=== PATIENT | female | born 1965 | race Caucasian/White ===

== ENCOUNTER 2022-06-02 13:54 | Emergency (ER) | payer MEDICARE, MEDICAID, SELFPAY ==
[2022-06-02 14:25] VITALS: BP 141/90; PULSE 86; RESP 16; TEMP 36; O2SAT 100
--- NOTE | 2022-06-02 15:34 | ED.URI ---
HPI - URI/Sore Throat General Chief Complaint: Upper Respiratory Infection Stated Complaint: Headache/Cough/Fever Time Seen by Provider: 06/02/22 15:51 Source: patient, RN notes reviewed and old records reviewed Mode of arrival: ambulatory Limitations: no limitations History of Present Illness HPI Narrative: 57-year-old female presents to the [facility] with complaints of headache, sinus congestion, feeling feverish since Delma Mai, less than 48 hours. Had tried taking an [id number]-aie-[id number] product which gave her palpitations. Reports mom had a similar issue and got better within 2 weeks. Related Data Home Medications Medication Instructions Recorded Confirmed amitriptyline 50 mg tablet 50 mg PO DAILY 06/02/22 06/02/22 aspirin 81 mg tablet,delayed 81 mg PO DAILY 06/02/22 06/02/22 release baclofen 10 mg tablet 10 mg PO DAILY 06/02/22 06/02/22 asjkxzanbr-oaeexmkpynack-ztdfogee 1 cap PO DAILY 06/02/22 06/02/22 50 mg-300 mg-40 mg capsule clopidogrel 75 mg tablet 75 mg PO DAILY 06/02/22 06/02/22 escitalopram oxalate 10 mg tablet 10 mg PO DAILY 06/02/22 06/02/22 evolocumab 140 mg/mL subcutaneous 140 mg subcut WEEKLY 06/02/22 06/02/22 pen injector (Marian Cronin) folic acid 1 mg tablet 1 mg PO DAILY 06/02/22 06/02/22 losartan 50 mg tablet 50 mg PO DAILY 06/02/22 06/02/22 metoprolol succinate 50 mg 50 mg PO DAILY 06/02/22 06/02/22 tablet,extended release 24 hr omeprazole 40 mg capsule,delayed 40 mg PO DAILY 06/02/22 06/02/22 release Allergies Allergy/AdvReac Type Severity Reaction Status Date / Time erythromycin base Allergy Intermediate Rash Verified 06/02/22 15:58 Review of Systems Review of Systems: All systems reviewed & are unremarkable except as noted in HPI and below Constitutional: Constitutional: Reports no additional constitutional complaints Eyes: Eyes: Reports no additional eye complaints ENT: Reports as per HPI and Reports nasal congestion Comments: Bilateral ear pressure Cardiovascular: Cardiovascular: Reports no additional cardiovascular complaints, Denies chest pain and Denies dyspnea Respiratory: Respiratory: Reports no additional respiratory complaints, Denies chest congestion, Denies cough and Denies dyspnea Gastrointestinal: Gastrointestinal: Reports no additional gastrointestinal complaints, Denies abdominal pain, Denies nausea and Denies vomiting Musculoskeletal: Musculoskeletal: Reports no additional musculoskeletal complaints Integumentary/Breasts: Skin/Breast: Reports system reviewed and no additional complaints, except as docu Neurologic: Reports system reviewed and no additional complaints, except as documented Psychiatric: Psychiatric: Reports no additional psychiatric complaints Allergic/Immunologic: Allergic/Immunologic: Reports no additional allergic/immunologic complaints [facility] Past Medical History Medical History (Updated 06/02/22 @ 20:59 by Rachelle Bernabe APRN) H/O gastroesophageal reflux (GERD) Heart attack High cholesterol History of high blood pressure Comments At the time of my signature, I reviewed and agree with the nursing past medical, surgical, social, and family history. There is no relevant family history pertinent to the patient complaint. Exam Const: General: cooperative, healthy appearing, comfortable, no acute distress, well developed, alert and well nourished Nutritional Appearance: well nourished Orientation/consciousness: patient oriented x3 Limitations: no limitations HENMT: Head: normal to inspection Ears: hearing grossly normal bilaterally, external ears normal and TM abnormal bulging on the left and with fluid behind the TM bilateral; not bullous, not dull and not erythematous Face/Nose/Sinus: Normal external nose present, Normal nares present, Normal nasal mucous membranes and turbinates present and normal facial exam Face and sinus: normal facial exam and sinuses nontender Mouth: Yes Normal oral and palatal mucosa present, Yes
== END 2022-06-02 16:05 | disposition home or self-care (01) ==
PROVIDERS: Emergency Provider Nurse Practitioner
DX: J06.9 Acute upper respiratory infection, unspecified (principal); K21.9 Gastro-esophageal reflux disease without esophagitis; E78.00 Pure hypercholesterolemia, unspecified; I10 Essential (primary) hypertension; I25.2 Old myocardial infarction; Z79.82 Long term (current) use of aspirin
CPT/HCPCS: 99203; G0463

== ENCOUNTER 2022-09-05 15:50 | Observation (INO) | payer MEDICARE, MEDICAID, SELFPAY ==
[2022-09-05] VITALS (33 sets, daily range): BP systolic 123–181; BP diastolic 74–105; PULSE 61–84; RESP 9–27; TEMP 36.6–37.2; O2SAT 95–100; BMI 35.2
--- NOTE | ~2022-09-05 | CT_ITS ---
EXAMINATION: CTA chest PE protocol DATE: 09/05/2022 16:48 INDICATION: Chest and back pain TECHNIQUE: Computed tomography angiography (CTA) of the chest was performed with 100 mL Omnipaque-350 intravenous contrast timed to evaluate the pulmonary arteries. Coronal maximum intensity projection 3D-reconstructions were created by the technologist. The dose-length product (DLP) was 780.36 mGy-cm. Automated exposure control and iterative reconstruction technique were employed. COMPARISON: None. FINDINGS: The pulmonary arteries are well-opacified. No pulmonary embolism is identified. There is mi ld atelectasis of the lungs. The lungs are free of focal airspace opacities. No pleural effusion or p neumothorax. There are changes of prior coronary artery bypass grafting. No pathologically enlarged t horacic lymph nodes are identified. The heart size is normal. The gallbladder is surgically absent. A small amount of pneumobilia is noted. There is mild thoracic spondylosis. IMPRESSION: 1. No pulmonary embolism or acute cardiopulmonary abnormality. Reviewed, dictated and finalized at location F.
--- NOTE | ~2022-09-05 | XR_ITS ---
EXAMINATION: XR chest 2V DATE: 09/05/2022 16:29 INDICATION: Chest pain. TECHNIQUE: Frontal and lateral views of the chest were obtained. COMPARISON: None. FINDINGS: The chest demonstrates clear lungs without pneumonia, pleural effusion, or pneumothorax. Th e heart size is normal. Median sternotomy wires and mediastinal surgical clips are seen, likely from prior coronary artery bypass grafting. IMPRESSION: 1. No acute cardiopulmonary disease. Reviewed, dictated and finalized at location A.
--- NOTE | ~2022-09-05 | CT_ITS ---
EXAMINATION: CT brain wo con INDICATION: Headache COMPARISON: None TECHNIQUE: Standard unenhanced head CT. The dose-length product (DLP) was 605.33 mGy-cm. The mA was a djusted according to patient size. Iterative reconstruction technique was employed. FINDINGS: There is no intracranial hemorrhage, acute infarction, or abnormal mass lesion. The ventric les are normal. There is no abnormal mass effect or midline shift. The tripathi-white matter differentiat ion is normal. The basal cisterns are patent. The orbits are normal. The paranasal sinuses, mastoids and calvarium are normal. IMPRESSION: 1. No acute intracranial abnormality. Reviewed, dictated and finalized at location F.
--- NOTE | 2022-09-05 15:59 | ECG_ITS ---
Measurements Intervals [place] [employer] Rate: 74 P: 36 ME: 159 QRS: 25 QRSD: 94 T: 57 QT: 367 QTc: 408 Interpretive Statements SINUS RHYTHM BASELINE ARTIFACT- II, III, AVF NORMAL ECG NO PREVIOUS ECG AVAILABLE FOR COMPARISON Electronically Signed On 09-05-2022 16:15:09 CDT by Yair Martínez D.O.
--- NOTE | 2022-09-05 16:05 | ED.CHESTPAIN ---
HPI - Chest Pain General Chief Complaint: Chest Pain Stated Complaint: sob/cp Time Seen by Provider: 09/05/22 15:52 Source: RN notes reviewed History of Present Illness HPI narrative: Patient presents emergency department from home for chest pain. Patient states that she has been having chest pain for the past week and a half states that the pain is intermittent and is located in her right side of her chest going into her right back. States the pain is described as sharp and stabbing in nature states is associated with shortness of breath. States the pain has been more severe since 10 PM last night and has been constant and she has been unable to sleep. States he does have a history of 2 previous MIs with bypass she denies any fevers or chills she denies any abdominal pain nausea vomiting or any other symptoms. States she has not taken anything for the pain Related Data Home Medications Medication Instructions Recorded Confirmed amitriptyline 50 mg tablet 50 mg PO QHS 06/02/22 09/06/22 aspirin 81 mg tablet,delayed 81 mg PO DAILY 06/02/22 09/06/22 release baclofen 10 mg tablet 10 mg PO BID PRN Muscle Spasm 06/02/22 09/06/22 czupcvbtng-cofpdssjoiqxs-uhiylhfz 1 cap PO Q4H PRN Headache 06/02/22 09/06/22 50 mg-300 mg-40 mg capsule escitalopram oxalate 10 mg tablet 10 mg PO DAILY 06/02/22 09/06/22 evolocumab 140 mg/mL subcutaneous 140 mg subcut [id number] 06/02/22 09/06/22 pen injector (Marian Cronin) folic acid 1 mg tablet 1 mg PO DAILY 06/02/22 09/06/22 losartan 50 mg tablet 50 mg PO DAILY 06/02/22 09/06/22 metoprolol succinate 50 mg 50 mg PO DAILY 06/02/22 09/06/22 tablet,extended release 24 hr omeprazole 40 mg capsule,delayed 40 mg PO DAILY 06/02/22 09/06/22 release albuterol sulfate 90 mcg/actuation 2 puff inhalation Q4H PRN 09/06/22 09/06/22 aerosol inhaler Shortness Of Breath Or Wheezing lamotrigine 150 mg tablet 150 mg PO DAILY 09/06/22 09/06/22 (Lamictal) levothyroxine 112 mcg tablet 112 mcg PO DAILY 09/06/22 09/06/22 melatonin 1 mg tablet 2 mg PO HS PRN Insomnia 09/06/22 09/06/22 nitroglycerin 0.4 mg sublingual 0.4 mg sublingual USEASDIRECTD PRN 09/06/22 09/06/22 tablet Chest Pain paroxetine HCl 10 mg tablet 10 mg PO DAILY 09/06/22 09/06/22 tiotropium bromide 1.25 2 puff inhalation DAILY 09/06/22 09/06/22 mcg/actuation mist for inhalation (Spiriva Respimat) Allergies Allergy/AdvReac Type Severity Reaction Status Date / Time erythromycin base Allergy Intermediate Rash Verified 06/02/22 15:58 morphine Allergy Hives Verified 09/05/22 17:56 Review of Systems Review of Systems: Gen.: Denies fevers or chills ENT: Denies congestion Respiratory: Today see HPI CV: See HPI GI: Denies abdominal pain nausea, emesis or diarrhea Musculoskeletal: Denies back pain or muscle pain Neuro: Denies numbness, tingling, weakness or focal weakness Skin: Denies rash Except as documented, all other systems reviewed and negative [facility] Past Medical History Medical History (Updated 09/06/22 @ 03:14 by Mackenzie Fischer DO) Anxiety and depression Benign paroxysmal vertigo COPD (chronic obstructive pulmonary disease) Coronary artery disease GERD (gastroesophageal reflux disease) High cholesterol History of high blood pressure History of irritable bowel syndrome Constipation and diarrhea Hypothyroidism Migraines Obstructive sleep apnea Intolerant to CPAP Surgical History Surgical History (Updated 09/06/22 @ 02:58 by Mackenzie Fischer DO) H/O colonoscopy History of coronary artery stent placement (~2017) X2 History of esophagogastroduodenoscopy (EGD) Hx of CABG (~2019) Family History Family History Father Hypertension Mother Hypertension Sibling Hypertension Father Diabetes mellitus Social History Social History (Updated 09/06/22 @ 03:02 by Mackenzie Fischer DO) Social History: The patient lives in [facility]. She is a former
--- NOTE | 2022-09-05 16:11 | PC.NURSE ---
Per Dr. Allen at this time discontinue ASA 324mg.
[2022-09-05 16:17] LABS: Basophils Absolute Auto 0.1 K/mm3 (0.0-0.1); Basophils Percent Auto 0.7 % (0.2-1.2); Eosinophils Absolute Auto 0.1 K/mm3 (0-0.3); Eosinophils Percent Auto 1.9 % (0-4.4); Hematocrit 39.9 % (37.0-47.0); Hemoglobin 12.4 g/dL (12.0-15.0); Immature Granulocyte Absolute 0.04 K/mm3 (0.00-0.031); Immature Granulocyte Percent A 0.5 % (0-0.5); Lymphocytes Absolute Auto 2.42 K/mm3 (0.9-3.2); Lymphocytes Percent Auto 32.4 % (18.3-44.2); Mean Corpuscular HGB Conc 31.1 g/dl (32-36); Mean Corpuscular Hemoglobin 28.6 pg (26-34); Mean Corpuscular Volume 91.9 fl (80-100); Mean Platelet Volume 11.9 fl (7.4-10.4); Monocytes Absolute Auto 0.6 K/mm3 (0.1-0.6); Monocytes Percent Auto 8.3 % (2.6-8.5); Neutrophils Absolute Auto 4.2 K/mm3 (1.3-6.7); Neutrophils Percent Auto 56.2 % (45.5-73.1); Platelet Count Result 221 k/mm3 (150-375); Red Blood Count 4.34 M/mm3 (4.2-5.4); Red Cell Distribution Width 14.5 % (11.5-14.5); White Blood Count 7.5 K/mm3 (4.5-10.0)
[2022-09-05 16:22] LABS: Alanine Aminotransferase 21 U/L (6-35); Albumin Level 4.3 g/dL (3.5-5.1); Alkaline Phosphatase 137 U/L (38-126); Anion Gap 5 mmol/L (8-16); Aspartate Amino Transferase 27 U/L (14-36); Bilirubin,Total 0.5 mg/dL (0.2-1.3); Blood Urea Nitrogen 12 mg/dL (7-17); Calcium 9.1 mg/dL (8.4-10.2); Carbon Dioxide 32 mmol/L (22-30); Chloride 102 mmol/L (98-107); Estimated CRCL calculation 84 ml/min; Estimated Glomerular Filt Rate > 60; Glucose 97 mg/dL (65-110); Lipase 92 U/L (23-300); Sodium 139 mmol/L (137-145)
[2022-09-05 16:26] LABS: INR 1.1; Partial Thromboplastin Time 24.9 SECONDS (22.3-36.8); Prothrombin Time 13.7 Seconds (11.1-14.7)
[2022-09-05 16:33] LABS: Troponin I < 0.012 ng/mL (0.000-0.034)
[2022-09-05 19:39] LABS: Troponin I < 0.012 ng/mL (0.000-0.034)
[2022-09-05] MEDS: HYDROmorphone HCL INJ (*CRX) 1 MG/ML SYR 0.5 MG IV PUSH (20:10)
[2022-09-05] MEDS: ASPIRIN 81 MG CHEWABLE TABLET 324 MG PO (21:25)
[2022-09-05 22:24] LABS: Troponin I < 0.012 ng/mL (0.000-0.034)
--- NOTE | 2022-09-05 23:57 | ADMGEN ---
This patient, Albina Obregon, was admitted to IMU Room 200-01. Patient/family oriented to hospital policies and general routines including ID bracelet, bed and alarms, visiting hours, pain management, procedures, bathroom and other care routines, personal items, smoking policy, room service/diet, and visiting hours. Information on how to activate the Rapid Response Team has been discussed. Patient/Family are encouraged to report perceived risks to care and to ask questions if they do not understand what they are told or what they should do.
[2022-09-06] VITALS (9 sets, daily range): BP systolic 112–141; BP diastolic 71–88; PULSE 66–102; RESP 15–18; TEMP 36.1–36.9; O2SAT 95–97
--- NOTE | 2022-09-06 01:26 | PM.IMHP ---
H&P: HPI History of Present Illness Date/Time: 09/06/22 00:30 Chief Complaint: Chest pain Narrative: 57-year-old female with a past medical history of obesity, untreated obstructive sleep apnea, migraines, anxiety, depression, hypertension, COPD, GERD, coronary artery disease, status post 2 cardiac stents and 2 vessel CABG who presented to the ER via private vehicle due to chest pain. The patient reports that she had her 1st heart attack in 2017 and had 2 stents placed she also then had another heart attack May 2020 at which time she had a 2 vessel bypass. Her procedures were done at [facility] and at [facility]. The patient is from [facility] and was in town visiting a friend. She reported that she began having chest pain in the right side her chest mostly in the upper back area that radiated up into her neck and throat. She reports that the pain was different than her usual chest pain. Her usual chest pain usually starts in epigastric region and radiates up through her chest up into her neck. However she has been having this right-sided chest pain on and off for 1.5 weeks. She reports that she began having a increased symptoms at her friend's house and became quite anxious and decided to come in to the ER. She did not think that she could make it to her usual hospital of [facility] and decided to come into our ER. She reports that the pain this time is a pulling type sensation. It goes up into her collar bone and the bones in her neck. She reports the pain is worse with deep breathing. She also reported that last night she did notice that she could feel her ?blood pressure pounding throughout her body and into her fingertips.?. She was accompanied by some nausea and diaphoresis. She also reports having chronic intermittent headaches started the base of her head in wrap around the top of her head. She has outpatient follow-up with Neurology. The patient also reports with her right-sided chest pain she also was having some right leg and ankle pain but she does not think that they were related. She denies any numbness tingling or difficulty walking. She reports that her chest pain is usually worsen when she tries to exert herself in any way. She denies any lower extremity swelling. She reports chronic anxiety but states that her psychiatric medications were adjusted 2 months ago and her lamotrigine and Lexapro at been helping with her anxiety significantly. Although the patient is asking for something to help her sleep and her anxiety. The patient reports reproducible pain in her midthoracic ranged in the left paraspinal muscles and reproducible pain with palpation of the sternocleidomastoid muscle. The patient reports chronic fullness in her ears and intermittent vertigo. She reports the meclizine and Valium use to help with the symptoms she denies any significant cough or congestion. She uses her albuterol inhaler up to a couple times a day. She quit smoking when she had her CABG. She also reports history of GERD and states that Protonix does not work for her. She states that omeprazole only helped for leave the symptoms. She states her symptoms currently are different than her GERD symptoms. However when I palpated the patient's epigastric region she did indicate that the burning sensation of her stomach is from my palpation was similar to the start of her chest pain. For uncertain reasons the patient failed to take any of her home medications on the day of presentation. Source of information is ER records and patient report. We have no way to obtain records from the patient's primary hospital or physician's this evening. Review of Systems Review of Systems: 12 systems were reviewed with pertinent positives and negatives per HPI. Except as documented in the HPI, all other systems were reviewed and are negative. The patient had significant sr positive review of systems. [facility] Past Medical History Medical History
[2022-09-06] MEDS: LEVOTHYROXINE SODIUM 112 MCG TABLET PO (05:44)
[2022-09-06] MEDS: ASPIRIN 81 MG ENTERIC TABLET PO (08:07)
[2022-09-06] MEDS: ENOXAPARIN 40 MG/0.4 ML SYRINGE SUB-Q (08:08)
[2022-09-06] MEDS: LOSARTAN POTASSIUM 50 MG TABLET PO (08:09)
[2022-09-06] MEDS: LIDOCAINE 5% PATCH 1 PATCH TRANSDERM (08:09)
[2022-09-06] MEDS: lamoTRIgine 100 MG TABLET PO (08:09)
[2022-09-06] MEDS: lamoTRIgine 50 MG TABLET PO (08:10)
[2022-09-06] MEDS: FOLIC ACID 1 MG TABLET PO (08:10)
[2022-09-06] MEDS: METOPROLOL SUCCINATE EXT REL 50 MG TABCR PO (08:10)
[2022-09-06] MEDS: ESCITALOPRAM OXALATE 10 MG TABLET PO (08:10)
[2022-09-06] MEDS: PANTOPRAZOLE 40 MG TABLET PO (08:11)
--- NOTE | 2022-09-06 09:13 | PCRCNOTE ---
Pt. refused Incruse inhaler; states she can't take that kind because the powder chokes her. She uses the spiriva respimat at home. Rahul notified.
--- NOTE | 2022-09-06 11:40 | PM.CNCAR ---
Assessment and Plan Assessment and plan (1) Musculoskeletal chest pain: Code(s): R07.89 - Other chest pain Status: Acute Assessment and Plan: 57-year-old female with self-reported history of CAD, history of [place] status post PCI/stenting in 2018 at outside hospital-intervention report not available; history of CABG x2 as per patient in 2020 at [facility]-operative report not available; hypertension, untreated MARILU, dyslipidemia on PCSK9 inhibitor, depression, hypothyroidism thyroxine replacement. Patient presented to [facility] with complaints of chest pain for about 10 days, mostly in the right upper back and right-sided. On physical examination, she has reproducible tenderness. She denies any recent trauma. EKG unremarkable, and serial troponins are negative. Symptoms consistent with musculoskeletal chest pain. (2) CAD (coronary artery disease): Code(s): I25.10 - Atherosclerotic heart disease of [place] coronary artery without angina pectoris Status: Acute Assessment and Plan: No cardiac ischemic symptoms. EKG unremarkable, serial troponins negative. Continue optimal medical treatment for CAD including aspirin, beta-samuel, PCSK9 inhibitor. Patient is scheduled to see a rubber printing machine operator in her local area. She was advised to keep regular appointment with her PCP and Cardiology. She verbalized understanding. (3) MARILU (obstructive sleep apnea): Code(s): G47.33 - Obstructive sleep apnea (adult) (pediatric) Status: Acute Assessment and Plan: Patient is history of untreated MARILU, due to intolerance to CPAP. She was advised to follow-up with [facility] Medicine [facility]. History of Present Illness History of Present Illness Consult date/time: 09/06/22 11:40 Reason For Visit: chest pain,headache Narrative: DATE OF CONSULT: 09/06/2022 REASON FOR CONSULT: chest pain REQUESTING PHYSICIAN:Matt Allen DO CHIEF COMPLAINT: chest pain HPI: 57-year-old female with self-reported history of CAD, history of [place] status post PCI/stenting in 2018 at outside hospital-intervention report not available; history of CABG x2 as per patient in 2020 at [facility]-operative report not available; hypertension, untreated MARILU, dyslipidemia on PCSK9 inhibitor, depression, hypothyroidism thyroxine replacement. Patient presented to [facility] Emergency Room on 09/05/2022 with complaints of chest pain. Patient reports that she has been experiencing discomfort in the right upper back, right side of the chest for about 10 days. She has had few episodes of chest discomfort, and yesterday she was visiting in the local area, and decided to come to the hospital for further evaluation. She gives history of CAD, PCI/stenting and CABG. She states that she used to follow-up with a rubber printing machine operator in [facility], does not recall the name. She states that her rubber printing machine operator is moving out of state, and she is scheduled to see a different rubber printing machine operator soon. At baseline, she denies symptoms of anginal chest pain. She has dyspnea on moderate exertion. No palpitation, dizziness or syncope. She used to be a smoker, does not smoke anymore. She also used to smoke marijuana in the past. EKG on this admission on my personal evaluation showed sinus rhythm without any acute ST segment abnormality. Troponins are negative. CT chest negative for PE. Chest x-ray showed median sternotomy with sternotomy wires, no pulmonary vascular congestion. Review of Systems Review of Systems: General: Negative for fever, chills, fatigue Psychological: Negative for anxiety, depression Ophthalmic: negative for loss of vision ENT: Negative for epistaxis, headaches Allergy and immunology: Negative for hives, nasal congestion Hematologic and lymphatic: Negative for overt bleeding problems Endocrine: Negative for hot flashes, palpitations Respiratory: Negative for cough, hemoptysis Cardiovascular: Negat
--- NOTE | 2022-09-06 12:23 | PM.DS ---
DS: Admitting Diagnosis Discharge Date 09/06/22 Admitting Diagnosis Chest pain DS: Discharge Diagnosis Discharge Diagnosis (1) Atypical chest pain: Code(s): R07.89 - Other chest pain Status: Acute (2) Headache: Qualifiers: Headache chronicity pattern: episodic headache Headache type: unspecified Intractability: not intractable Qualified Code(s): R51.9 - Headache, unspecified Code(s): R51.9 - Headache, unspecified Status: Acute (3) Anxiety and depression: Code(s): F41.9 - Anxiety disorder, unspecified; F32.A - Depression, unspecified Status: Acute (4) GERD (gastroesophageal reflux disease): Qualifiers: Esophagitis presence: esophagitis presence not specified Qualified Code(s): K21.9 - Gastro-esophageal reflux disease without esophagitis Code(s): K21.9 - Gastro-esophageal reflux disease without esophagitis Status: Acute (5) Epigastric discomfort: Code(s): R10.13 - Epigastric pain Status: Acute (6) Neck pain: Code(s): M54.2 - Cervicalgia Status: Acute (7) Migraines: Code(s): G43.909 - Migraine, unspecified, not intractable, without status migrainosus Status: Acute Plan The patient is having right-sided chest pain that is atypical in nature. She has had 3- sets of cardiac enzymes. Unfortunately we do not have record of her prior interventions were surgeries regarding her coronary disease is she has not seen within our system. However she does get care at [facility] which is in [employer] EMR system. Cardiology has been consulted further opinion given the patient's complex cardiac history. Perhaps they can obtain some records from the the medical center charting system. Will continue patient's home baby aspirin, metoprolol and losartan. However I do not feel the pain patient's chest pain is cardiac in nature. Lot of her symptoms are reproducible in seem musculoskeletal in nature. Notably, her neck pain with tenderness up through the head of the sternocleidomastoid. Patient does report some nausea and vertigo I tried to relieve some of the symptoms with relief of for the station tube dysfunction. She did report improvement in her nausea and dizziness. Her CT performed in the ER was negative for acute intercranial process. She ready has outpatient follow-up with Neurology arranged. Will continue patient's home medications as appropriate for anxiety migraines and chronic pain as well as GERD. Patient may have a component of gastritis but there is no need for inpatient evaluation of the patient's GI symptoms. She has longstanding GERD and what sounds like irritable bowel syndrome Will resume the patient's other home medications as appropriate including her hypothyroid medications. Patient has been admitted as observation status. DS: Summary Hospital Course Hospital Course: 57-year-old female with past medical history significant for obesity, COPD, anxiety, heart disease with a history of CABG and 2 stents is presenting with chest pain. Troponin has been negative x3. Home medications were restarted. Chest pain was thought to be noncardiac in etiology, likely secondary to sternocleidomastoid spasm. She does have some vertigo with outpatient follow-up with Neurology already arranged. History of GERD and IBS, symptoms are stable. Cardiology was consulted and recommended discharge with outpatient follow-up for possible sleep apnea. Time Spent with Patient Time attestation: Total time spent providing and/or coordinating discharge services: Exam Narrative: General: No acute distress, alert and oriented per baseline HEENT: Atraumatic, normocephalic, mucous membranes moist CV: Regular rate and rhythm, S1, S2 Lungs: Clear to auscultation bilaterally, no rales or crackles noted, no wheezes, good air entry Abdomen: Soft, nontender, nondistended Extremities: Normal to inspection Skin: No rashes noted, no lesions or wounds
[2022-09-06] MEDS: TIZANIDINE HCL 1 MG TABLET PO (13:05)
== END 2022-09-06 13:20 | disposition home or self-care (01) ==
LOC: ANHED 21:43 → ANHIMU 09-06 01:19
PROVIDERS: Admitting Provider Internal Medicine; Emergency Provider Emergency Medicine; Visit Provider Student in an Organized Health Care Education/Training Program
DX: R07.89 Other chest pain (principal); R51.9 Headache, unspecified; I25.10 Atherosclerotic heart disease of native coronary artery without angina pectoris; Z95.1 Presence of aortocoronary bypass graft; G47.33 Obstructive sleep apnea (adult) (pediatric); I25.2 Old myocardial infarction; F41.9 Anxiety disorder, unspecified; F32.A Depression, unspecified; H81.10 Benign paroxysmal vertigo, unspecified ear; J44.9 Chronic obstructive pulmonary disease, unspecified; K21.9 Gastro-esophageal reflux disease without esophagitis; R10.13 Epigastric pain; M54.2 Cervicalgia; K58.2 Mixed irritable bowel syndrome; E78.00 Pure hypercholesterolemia, unspecified; E03.9 Hypothyroidism, unspecified; E66.9 Obesity, unspecified; Z68.35 Body mass index [BMI] 35.0-35.9, adult; Z79.891 Long term (current) use of opiate analgesic; Z79.82 Long term (current) use of aspirin; Z79.51 Long term (current) use of inhaled steroids; Z79.899 Other long term (current) drug therapy
CPT/HCPCS: 36415; 70450; 71046; 71275; 80053; 83690; 84484; 85025; 85610; 85730; 93005; 96365; 96372; 96375; 99285; A9270; G0378; J0131; J1170; J1650; Q9967